=== PATIENT | male | born 1975 | race Hispanic/Latino ===

== ENCOUNTER 2017-09-21 23:12 | Emergency (ER) | payer SELFPAY ==
[2017-09-21 23:20] VITALS: TEMP 98.1
[2017-09-21] MEDS ORDERED: Iohexol 240 (50 ml) PO ONE (23:46)
[2017-09-21] MEDS ORDERED: Sodium Chloride 0.9% 1,000 ML IV STA (23:48)
--- NOTE | 2017-09-22 00:14 | ED PDOC ---
HPI: Seizure Time Seen by Provider: 09/21/17 23:27 Chief Complaint (Nursing): Seizure Chief Complaint (Provider): Seizure History Per: Patient, Other (co-worker) History/Exam Limitations: no limitations Recent Seizure Activity Began: Just Before Arrival Number Of Seizures: One Length Of Seizures (Duration): Seconds Additional Complaint(s): 42 y/o male with a PMHx of epilepsy since childhood presents to the ED status post seizure, onset prior to arrival. Patient reports he had one seizure prior to arrival that was witnessed by his co-worker. According to the witness, seizure lasted for a few seconds and the patient became postictal. Witness also states that the patient had hit his head while seizing. Patient reports he is supposed to be on Keppra but has not taken it in two years due to insurance problems. Patient states he has frequent seizures and his last one was two weeks ago. Additionally, patient complains of right lower quadrant abdominal pain that has gradually started to get worse throughout the day associated with nausea and chills, onset this morning. Patient reports he is now feeling better but still has abdominal pain. Denies vomiting, diarrhea, and fevers. PMD: None Provided Past Medical History Reviewed: Historical Data, Nursing Documentation, Vital Signs Vital Signs: Last Vital Signs Temp 98.1 F 09/21/17 23:17 Pulse 69 09/22/17 06:16 Resp 18 09/21/17 23:17 BP 126/86 09/21/17 23:17 Pulse Ox 100 09/22/17 06:16 - Medical History PMH: Seizures - Surgical History Surgical History: No Surg Hx - Family History Family History: States: Unknown Family Hx - Home Medications Home Medications: Ambulatory Orders Medication Instructions Recorded Levetiracetam [Keppra] 500 mg PO BID #60 tablet 09/22/17 - Allergies Allergies/Adverse Reactions: Allergies Allergy/AdvReac Type Severity Reaction Status Date / Time codeine Allergy ANAPHYLAXIS Verified 09/21/17 23:17 Review of Systems ROS Statement: Except As Marked, All Systems Reviewed And Found Negative Constitutional: Positive for: Chills. Negative for: Fever Gastrointestinal: Positive for: Nausea, Abdominal Pain (right lower quadrant). Negative for: Vomiting, Diarrhea Neurological: Positive for: Seizures Physical Exam - Reviewed Nursing Documentation Reviewed: Yes Vital Signs Reviewed: Yes - Physical Exam Appears: Positive for: No Acute Distress Head Exam: Positive for: ATRAUMATIC, NORMOCEPHALIC Skin: Positive for: Normal Color, Warm, Dry Eye Exam: Positive for: Normal appearance, EOMI, PERRL ENT: Positive for: Normal ENT Inspection Neck: Positive for: Normal, Painless ROM, Supple Cardiovascular/Chest: Positive for: Regular Rate, Rhythm. Negative for: Murmur Respiratory: Positive for: Normal Breath Sounds. Negative for: Rales, Rhonchi, Wheezing, Respiratory Distress Gastrointestinal/Abdominal: Positive for: Normal Exam, Soft, Tenderness (right lower quadrant ) Back: Positive for: Normal Inspection. Negative for: L CVA Tenderness, R CVA Tenderness, Vertebral Tenderness Extremity: Positive for: Normal ROM. Negative for: Pedal Edema, Deformity Neurologic/Psych: Positive for: Alert, Oriented. Negative for: Motor/Sensory Deficits - Laboratory Results Result Diagrams: 09/22/17 00:27 09/22/17 00:27 - ECG ECG Rhythm: Positive for: Sinus Rhythm Rate: 69 O2 Sat by Pulse Oximetry: 100 (RA) Pulse Ox Interpretation: Normal - Progress Re-evaluation Time: 06:18 Condition: Re-examined, Improved Medical Decision Making Medical Decision Making: Time: 0088 Impression: Recurrent seizures, abdominal pain Differentials include but not limited to acute appendicitis, kidney stones, colitis, and recurrent seizure/epilepsy Plan: -- CT Abd & Pelvis -- CT Head w/o Contrast -- EKG -- Alcohol Serum -- CMP -- Urine Drug Screen -- Magnesium -- Phosphorus -- CBC with differentials -- Glucose, POC Routine -- Sodium Chloride 1000 mls/hr -- Omnipaque 50 ml PO -- Zofran Inj 4 mg IV -- IV Insertion Time: [address] RESULTS FINDINGS: Brain: Unremarkable. No hemorrhage. No significant white matter disease. No edema. Ventricles: Unremarkable. No ventriculomegaly. Bones/joints: Unremarkable. No acute fracture. Soft tissues: Unremarkable. Sinuses: Patchy mucosal thickening within the bilateral ethmoid air cells. Mastoid air cells: Unremarkable as visualized. No mastoid effusion. IMPRESSION: No acute findings. Thank you for allowing us to participate in the care of your patient. Dictated and Authenticated by: Kelin George MD 09/22/2017 12:36 AM Eastern Time ([place] & [place]) Time: 0614 CT ABD/PELVIS RESULTS FINDINGS: Lung bases: There is subpleural atelectasis of the dependent portions of the lungs. ABDOMEN: Liver: There is nonspecific periportal edema. There are no focal liver lesions identified. Gallbladder and bile ducts: The gallbladder is normal. There is no evidence of biliary ductal dilation. No calcified stones. Pancreas: The pancreas appears normal. No ductal dilation. Spleen: The spleen is normal. Adrenals: The adrenal glands are normal. Kidneys and ureters: The kidneys appear normal. The kidneys appear normal. No hydronephrosis. Stomach and bowel: The stomach is normal. No obstruction. No mucosal thickening. PELVIS: Appendix: A normal appendix is identified. Bladder: The bladder is normal. Reproductive: The prostate gland and seminal vesicles are normal. ABDOMEN and PELVIS: Intraperitoneal space: Normal. No free air. No significant fluid collection. Bones/joints: There is a moderate pectus excavatum deformity of the anterior chest wall. No acute fracture. No dislocation. Soft tissues: Normal. Vasculature: Normal. No abdominal aortic aneurysm. Lymph nodes: Normal. No enlarged lymph nodes. IMPRESSION: No acute abdominal pelvic pathology. Thank you for allowing us to participate in the care of your patient. Dictated and Authenticated by: Jean Paul ePna MD 09/22/2017 6:14 AM Eastern Time ([place] & [place]) Scribe Attestation: Documented by Wojciech Dietz acting as a scribe for Dr. Leigh Ann Rios MD. Provider Scribe Attestation: All medical record entries made by the Scribe were at my direction and personally dictated by me. I have reviewed the chart and agree that the record accurately reflects my personal performance of the history, physical exam, medical decision making, and the department course for this patient. I have also personally directed, reviewed, and agree with the discharge instructions and disposition. Disposition - Clinical Impression Clinical Impression: Seizure disorder, Abdominal pain - Patient ED Disposition Is Patient to be Admitted: No Doctor Will See Patient In The: Office Counseled Patient/Family Regarding: Studies Performed, Diagnosis, Need For Followup - Disposition Referrals: [facility] [Outside] Nathan Ronquillo MD [Staff Provider] - Disposition: Routine/Home Disposition Time: 06:19 Condition: GOOD Additional Instructions: Take your medications as instructed. Follow up with your PCP in 2-3 days. Prescriptions: Levetiracetam [Keppra] 500 mg PO BID #60 tablet Instructions: Seizures, Adult (DC), Acute Abdomen (Belly Pain), Adult (DC)
[2017-09-22 00:37] LABS: HEMOGLOBIN 14.2 g/dL (12.0-18.0); MEAN CELL VOLUME 81.4 fl (80.0-94.0); MEAN CORPUSCULAR HEMOGLOBIN 26.8 pg (27.0-31.0); MEAN CORPUSCULAR HGB CONC 32.9 g/dL (33.0-37.0); MEAN PLATELET VOLUME 9.1 fl (7.2-11.7); NEUT % 64.1 % (50.0-75.0); RBC 5.31 Mil/uL (4.40-5.90); RED CELL DISTRIBUTION WIDTH 14.1 % (11.5-14.5)
[2017-09-22 00:38] LABS: BASO % 0.4 % (0.0-2.0); EOS % 0.7 % (0.0-4.0); LYMPH # 1.4 K/uL (1.0-4.3); LYMPH % 23.7 % (20.0-40.0); MONO # 0.7 K/uL (0.0-0.8); MONO % 11.1 % (0.0-10.0); NEUT # 3.8 K/uL (1.8-7.0)
[2017-09-22 00:44] LABS: ALB/GLOB RATIO 1.5 (1.0-2.1); ALBUMIN 4.4 g/dL (3.5-5.0); ALT/SGPT 69 U/L (21-72); AST/SGOT 47 U/L (17-59); BLOOD UREA NITROGEN 15 mg/dl (9-20); CALCIUM 9.4 mg/dL (8.4-10.2); GFR AFRICAN-AMERICAN > 60; GFR NON-AFRICAN AMERICAN > 60
[2017-09-22] MEDS ORDERED: Iohexol 240 (50 ml) ONE (02:06)
[2017-09-22 03:28] LABS: BARBITURATES, UR NEGATIVE (NEGATIVE); BENZODIAZEPINES, UR NEGATIVE (NEGATIVE); OPIATES, UR NEGATIVE (NEGATIVE); PHENCYCLIDINE, UR NEGATIVE (NEGATIVE)
[2017-09-22] MEDS ORDERED: levETIRAcetam 1,000 MG in Sodium Chloride 0.9% 100 ML IVPB ONE (04:30)
[2017-09-22] MEDS ORDERED: Iohexol 300 100 ML IJ ONE (04:37)
--- NOTE | 2017-09-22 06:56 | CT ---
PROCEDURE: CT HEAD WITHOUT CONTRAST. HISTORY: head injury COMPARISON: None available. TECHNIQUE: Axial computed tomography images were obtained through the head/brain without intravenous contrast. Radiation dose: Total exam DLP = 747 mGy-cm. This CT exam was performed using one or more of the following dose reduction techniques: Automated exposure control, adjustment of the mA and/or kV according to patient size, and/or use of iterative reconstruction technique. FINDINGS: HEMORRHAGE: No intracranial hemorrhage. BRAIN: No mass effect or edema. No atrophy or chronic microvascular ischemic changes. VENTRICLES: Unremarkable. No hydrocephalus. CALVARIUM: Unremarkable. PARANASAL SINUSES: Patchy mucosal thickening within the bilateral ethmoid air cells. MASTOID AIR CELLS: Unremarkable as visualized. No inflammatory changes. OTHER FINDINGS: None. IMPRESSION: No acute intracranial abnormality. Sinus mucosal disease as above. If symptoms persists, consider correlation with MRI. These findings were preliminarily reported at 12:36 a.m. on 09/22/[address] Kelin George from [employer] radiologic.
[2017-09-22 07:28] VITALS: BP 132/78; PULSE 78; RESP 16; O2SAT 99
--- NOTE | 2017-09-22 10:21 | CT ---
PROCEDURE: CT Abdomen and Pelvis with contrast HISTORY: RLQ pain COMPARISON: None. TECHNIQUE: Contrast dose: 90 mL Omnipaque 300 Radiation dose: Total exam DLP = 218.1 mGy-cm. This CT exam was performed using one or more of the following dose reduction techniques: Automated exposure control, adjustment of the mA and/or kV according to patient size, and/or use of iterative reconstruction technique. FINDINGS: LOWER THORAX: Unremarkable. LIVER: Mild periportal edema. No gross lesion or ductal dilatation. GALLBLADDER AND BILE DUCTS: Unremarkable. PANCREAS: Unremarkable. No gross lesion or ductal dilatation. SPLEEN: Mild splenomegaly measuring up to 14 cm. ADRENALS: Unremarkable. No mass. KIDNEYS AND URETERS: Left extrarenal pelvis. No hydronephrosis. No solid mass. VASCULATURE: Unremarkable. No aortic aneurysm. BOWEL: Unremarkable. No obstruction. No gross mural thickening. APPENDIX: Normal appendix. PERITONEUM: Unremarkable. No free fluid. No free air. LYMPH NODES: Unremarkable. No enlarged lymph nodes. BLADDER: Unremarkable. REPRODUCTIVE: Unremarkable. BONES: No acute fracture. Pectus excavatum deformity of the anterior chest wall. OTHER FINDINGS: None. IMPRESSION: No acute abdominal pelvic pathology. Mild splenomegaly. Additional incidental findings as above.
--- NOTE | 2017-09-25 11:29 | CARD ---
APPROVED REPORT EKG Measurement Heart [id number] <Conclusion> Normal sinus rhythm Incomplete right bundle branch block Left anterior fascicular block Abnormal ECG
== END 2017-09-22 07:00 | disposition home or self-care (01) ==
LOC: H.ER 23:12
DX: G40.909 Epilepsy, unspecified, not intractable, without status epilepticus (principal); S09.90XA Unspecified injury of head, initial encounter; W19.XXXA Unspecified fall, initial encounter; Y92.89 Other specified places as the place of occurrence of the external cause; R10.31 Right lower quadrant pain
CPT/HCPCS: 70450; 74177; 80053; 82948; 83735; 84100; 85025; 99285; G0480; J1953; J2405; J7030; Q9966; Q9967